=== PATIENT | female | born 1990 | race Caucasian/White ===

== ENCOUNTER 2017-01-01 23:41 | Emergency (ER) | payer OTHER ==
[~2017-01-01] VITALS: Ht 165.1 cm; Wt 105.5 kg
[2017-01-01 23:48] VITALS: Ht 165.1 cm; Wt 105.5 kg
--- NOTE | 2017-01-02 00:10 | ERA ---
ER Documentation Chief Complaint Date/Time DATE: 01/02/17 TIME: 00:09 Chief Complaint Suicidal Thoughts and felling angry and depress HPI The patient is a 26-year-old female, presenting to the ER because of depressed, angry, suicidal ideation. She was seen at [facility], evaluated by psychiatrist who discharged her. She had suicidal thoughts of shooting herself while cutting her wrist intermittently for 1 week. She denies auditory , visual hallucination, homicidal ideation. She denies fever, chills, neck pain , dyspnea, abdominal pain, vomiting, dysuria, diarrhea, constipation. She complains of chest discomfort and bilateral leg pain while she was in the ER. She smokes, drinks, denies illicit drug. He has similar been hospitalized psychiatric hospital Past medical history: Depression, anxiety Past surgical history: Thyroid tumor resection, tonsillectomy ROS All systems reviewed and are negative except as per history of present illness. Allergies Allergies: Coded Allergies: No Known Allergy (Unverified , 01/01/17) Physical Exam Vitals Vital Signs Date Time Temp Pulse Resp B/P Pulse Ox O2 Delivery O2 Flow Rate FiO2 01/02/17 01:38 97.8 77 20 132/70 99 Room Air 01/01/17 23:48 98.6 113 20 112/70 96 Physical Exam Const: No acute distress. Head: Atraumatic. Eyes: Normal Conjunctiva. ENT: Normal External Ears, Nose and Mouth. Neck: Full range of motion. No meningismus. Resp: Clear to auscultation bilaterally. Cardio: Regular rate and rhythm, no murmurs. Abd: Soft, non distended, normal bowel sounds, non tender. Skin: No petechiae or rashes. Back: No midline or flank tenderness. Ext: No cyanosis, or edema. Neur: Awake and alert. No focal deficit Psych: Depressed and suicidal. Result Diagram: 01/02/17 0100 01/02/17 0100 Results 24 hrs Laboratory Tests Test 01/02/17 01:00 01/02/17 01:14 01/02/17 01:20 White Blood Count 12.410^3/ul Red Blood Count 4.5810^6/ul Hemoglobin 12.7g/dl Hematocrit 39.5% Mean Corpuscular Volume 86.2fl Mean Corpuscular Hemoglobin 27.7pg Mean Corpuscular Hemoglobin Concent 32.2g/dl Red Cell Distribution Width 13.3% Platelet Count 80754^3/UL Mean Platelet Volume 10.9fl Neutrophils % 59.0% Lymphocytes % 32.2% Monocytes % 6.5% Eosinophils % 1.4% Basophils % 0.5% Nucleated Red Blood Cells % 0.0/100WBC Neutrophils # 7.310^3/ul Lymphocytes # 4.010^3/ul Monocytes # 0.810^3/ul Eosinophils # 0.210^3/ul Basophils # 0.110^3/ul Nucleated Red Blood Cells # 0.010^3/ul Sodium Level 141mmol/L Potassium Level 4.1mmol/L Chloride Level 103mmol/L Carbon Dioxide Level 23mmol/L Anion Gap 19 Blood Urea Nitrogen 12mg/dl Creatinine 0.74mg/dl Glucose Level 88mg/dl Calcium Level 9.3mg/dl Total Bilirubin 0.1mg/dl Direct Bilirubin 0.00mg/dl Indirect Bilirubin 0.1mg/dl Aspartate Amino Transf (AST/SGOT) 23IU/L Alanine Aminotransferase (ALT/SGPT) 20IU/L Alkaline Phosphatase 58IU/L Total Protein 8.1g/dl Albumin 4.3g/dl Globulin 3.80g/dl Albumin/Globulin Ratio 1.13 Salicylates Level Pending Acetaminophen Level Pending Ethyl Alcohol Level Pending Bedside Urine pH (LAB) 5.5 Bedside Urine Protein (LAB) Negative Bedside Urine Glucose (UA) Negative Bedside Urine Ketones (LAB) Negative Bedside Urine Blood Trace-intact Bedside Urine Nitrite (LAB) Negative Bedside Urine Leukocyte Esterase (L Negative Urine Opiates Screen Pending Urine Barbiturates Negative Urine Amphetamines Screen Negative Urine Benzodiazepines Screen Negative Urine Cocaine Screen Negative Urine Cannabinoids Negative Procedures/MDM EKG: Read by emergency physician Rate/Rhythm: Normal Sinus Rhythm 97 beats/min QRS, ST, T-waves: No ST elevation, no T inversion, sinus arrhythmia Impression: Abnormal EKG [place] [address] Radiology Main Line: [phone] DIAGNOSTIC IMAGING REPORT Patient: REGINA MERRITT : 1990 Age: 26 Sex: F MR #: [id number] DOS: 01/02/17 0025 Ordering MD: ZAK ORTEGA MD Location: E/R Room/Bed: PROCEDURE: Ultrasound examination of bilateral lower extremities veins with Doppler. CLINICAL INDICATION: Leg pain and swelling. TECHNIQUE: Multiple sonographic images of bilateral lower extremity venous systems were performed with barrera scale and color Doppler. COMPARISON: None. FINDINGS: Bilateral common femoral, superficial femoral and popliteal veins demonstrate normal color flow, waveforms, compression and response to augmentation. There is no evidence of deep venous thrombosis. IMPRESSION: No evidence of deep venous thrombosis within bilateral lower extremities. .Jarret Key MD, Date Time Electronically viewed and signed by .Jarret Key MD, on 01/02/2017 01:39 .T/ CC: ZAK ORTEGA MD [place] [address] Radiology Main Line: [phone] DIAGNOSTIC IMAGING REPORT Patient: REGINA MERRITT : 1990 Age: 26 Sex: F MR #: [id number] DOS: 01/02/17 0000 Ordering MD: ZAK ORTEGA MD Location: E/R Room/Bed: PROCEDURE: Portable chest x-ray. CLINICAL INDICATION: Cough. TECHNIQUE: Portable AP view of the chest. COMPARISON: None. FINDINGS: No pulmonary edema or conolidation is identified. The cardiac silhouette is magnified. No pleural effusion is seen. There is no pneumothorax. IMPRESSION: 1. No evidence of acute cardiopulmonary disease. RPTAT: HTAR .Talib Haley MD, Date Time Electronically viewed and signed by .Talib Haley MD, on 01/02/2017 01:49 .R/ CC: ZAK ORTEGA MD MEDICAL MAKING DECISION: The patient is a 26-year-old female, presenting with acute suicidal ideation. The differential diagnoses considered include but are not limited to acute anxiety attack, acute panic attack, decompensated psychiatric illness Departure Diagnosis: Primary Impression: Suicidal ideation Condition: Stable Comments She is awaiting for telepsychiatrist evaluation ZAK ORTEGA MD Jan 02, 2017 00:10
[2017-01-02 01:16] LABS: URINE BLOOD (Dip) POC Trace-intact (NEGATIVE)
[2017-01-02 01:24] LABS: ADD SCAN DIFF NO
[2017-01-02 01:30] LABS: BASOPHIL # 0.1 10^3/ul (0.0-0.1); BASOPHILS % 0.5 % (0.0-2.0); EOSINOPHILS # 0.2 10^3/ul (0.0-0.5); EOSINOPHILS % 1.4 % (0.0-7.0); HEMATOCRIT 39.5 % (37.0-47.0); HEMOGLOBIN 12.7 g/dl (12.0-16.0); LYMPHOCYTES % 32.2 % (15.0-51.0); MEAN CORPUSCULAR HEMOGLOBIN 27.7 pg (29.0-33.0); MEAN CORPUSCULAR HGB CONC 32.2 g/dl (32.0-37.0); MEAN CORPUSCULAR VOLUME 86.2 fl (82.0-101.0); MEAN PLATELET VOLUME 10.9 fl (7.4-10.4); MONOCYTE # 0.8 10^3/ul (0.3-0.9); MONOCYTES % 6.5 % (0.0-11.0); NEUTROPHIL # 7.3 10^3/ul (1.6-7.5); PLATELET COUNT 332 10^3/UL (140-415); RED BLOOD COUNT 4.58 10^6/ul (4.20-5.40); RED CELL DISTRIBUTION WIDTH 13.3 % (11.5-14.5); WHITE BLOOD COUNT 12.4 10^3/ul (4.8-10.8)
--- NOTE | 2017-01-02 01:39 | RADRPT ---
PROCEDURE: Ultrasound examination of bilateral lower extremities veins with Doppler. CLINICAL INDICATION: Leg pain and swelling. TECHNIQUE: Multiple sonographic images of bilateral lower extremity venous systems were performed with barrera scale and color Doppler. COMPARISON: None. FINDINGS: Bilateral common femoral, superficial femoral and popliteal veins demonstrate normal color flow, wav eforms, compression and response to augmentation. There is no evidence of deep venous thrombosis. IMPRESSION: No evidence of deep venous thrombosis within bilateral lower extremities. .Jarret Key MD, MD Date Time Electronically viewed and signed by .Jarret Key MD, MD on 01/02/2017 01:39 .T/
[2017-01-02 01:47] LABS: ALBUMIN 4.3 g/dl (3.3-4.9); CHLORIDE 103 mmol/L (97-110)
[2017-01-02 01:48] LABS: POTASSIUM 4.1 mmol/L (3.5-5.1); SODIUM 141 mmol/L (135-144)
--- NOTE | 2017-01-02 01:49 | RADRPT ---
PROCEDURE: Portable chest x-ray. CLINICAL INDICATION: Cough. TECHNIQUE: Portable AP view of the chest. COMPARISON: None. FINDINGS: No pulmonary edema or conolidation is identified. The cardiac silhouette is magnified. No pleural effusion is seen. There is no pneumothorax. IMPRESSION: 1. No evidence of acute cardiopulmonary disease. RPTAT: HTAR .Talib Haley MD, MD Date Time Electronically viewed and signed by .Talib Haley MD, on 01/02/2017 01:49 .R/
[2017-01-02 01:50] LABS: ALBUMIN/GLOBULIN RATIO 1.13; ALKALINE PHOSPHATASE 58 IU/L (42-121); ANION GAP 19 (8-16); ASPARTATE AMINO TRANSFERASE 23 IU/L (15-46); BILIRUBIN,INDIRECT 0.1 mg/dl (0-1.1); BILIRUBIN,TOTAL 0.1 mg/dl (0.2-1.3); BLOOD UREA NITROGEN 12 mg/dl (7-20); CARBON DIOXIDE 23 mmol/L (21-31); CREATININE 0.74 mg/dl (0.44-1.00); TOTAL PROTEIN 8.1 g/dl (6.1-8.1)
[2017-01-02 01:51] LABS: ALANINE AMINOTRANSFERASE 20 IU/L (13-69); CALCIUM 9.3 mg/dl (8.4-10.2); GLUCOSE 88 mg/dl (70-220)
[2017-01-02 02:00] LABS: BARBITURATES Negative (NEGATIVE); BENZODIAZEPINES Negative (NEGATIVE); CANNABINOIDS Negative (NEGATIVE); COCAINE Negative (NEGATIVE)
[2017-01-02 02:05] LABS: OPIATES Negative (NEGATIVE)
[2017-01-02 02:07] LABS: ACETAMINOPHEN < 10.0 ug/ml (10.0-30.0); ETHANOL < 10.0 mg/dl; SALICYLATE < 1.0 mg/dl (5.0-30.0)
[2017-01-02] MEDS ORDERED: BENZTROPINE 2 MG INJ IM ONE ×2 (03:00→04:30)
[2017-01-02] MEDS ORDERED: LORA1TAB PO (03:58)
[2017-01-02] MEDS ORDERED: BEN50 PO (03:59)
--- NOTE | 2017-01-02 04:02 | PSY ---
Date/Time of Note Date/Time of Note DATE: 01/02/17 TIME: 03:54 Psychiatric Subjective Eval Consent Pt consented to telemedicine: Yes Subjective Evaluation Patient location: emergency Chief Complaint: chest pain and leg pain Reason for consult: anxiety and pain History of present illness patient is a 26 yo female with PPH Of mood do nos and anxiety do who came to the ER due to few hours chest pain to the right side while breathing that gets better upon lying and leg pain with stiffness, numbness and restlessness , she states that she was started on latuda and ativan one week ago, denies any suicidal or homicidal ideation , no current manic or psychotic symptoms, but she has been feeling depressed and anxious for the past few weeks. denies any drug or alcohol use. she received 1 mg of cogentin IM which made her leg pain better but not the chest pain. Hospitalization: no Family History denies Medical history Problems Medical Problems: (1) Suicidal ideation Status: Acute Allergies: Coded Allergies: No Known Allergy (Unverified , 01/01/17) Substance Abuse Substance use: No known substance abuse Social History Marital status: single Level of education: unknown DPA/Conservatorship: No Psychiatric Objective Eval Review of Systems: Review of Systems: Not Applicable Physical Examination: Physical Examination: Applicable Sleep: Insomnia Appetite: Decreased Energy: Decreased Interest: Decreased Mental Status Examination: Appearance: Groomed Eye Contact: Good Psychomotor Activity: Normal Behavior: Cooperative Speech: Clear AFFECT: Anxious Mood: Anxious Though Process: Linear Thought Content: Normal Suicidal: No Homicidal: No On 72 hour hold: No Cognition: Alert Insight: Intact Judgement: Intact Attention Span: Intact Laboratory Results Laboratory Tests Test 01/02/17 01:00 01/02/17 01:14 01/02/17 01:20 White Blood Count 12.410^3/ul Red Blood Count 4.5810^6/ul Hemoglobin 12.7g/dl Hematocrit 39.5% Mean Corpuscular Volume 86.2fl Mean Corpuscular Hemoglobin 27.7pg Mean Corpuscular Hemoglobin Concent 32.2g/dl Red Cell Distribution Width 13.3% Platelet Count 05057^3/UL Mean Platelet Volume 10.9fl Neutrophils % 59.0% Lymphocytes % 32.2% Monocytes % 6.5% Eosinophils % 1.4% Basophils % 0.5% Nucleated Red Blood Cells % 0.0/100WBC Neutrophils # 7.310^3/ul Lymphocytes # 4.010^3/ul Monocytes # 0.810^3/ul Eosinophils # 0.210^3/ul Basophils # 0.110^3/ul Nucleated Red Blood Cells # 0.010^3/ul Sodium Level 141mmol/L Potassium Level 4.1mmol/L Chloride Level 103mmol/L Carbon Dioxide Level 23mmol/L Anion Gap 19 Blood Urea Nitrogen 12mg/dl Creatinine 0.74mg/dl Glucose Level 88mg/dl Calcium Level 9.3mg/dl Total Bilirubin 0.1mg/dl Direct Bilirubin 0.00mg/dl Indirect Bilirubin 0.1mg/dl Aspartate Amino Transf (AST/SGOT) 23IU/L Alanine Aminotransferase (ALT/SGPT) 20IU/L Alkaline Phosphatase 58IU/L Total Protein 8.1g/dl Albumin 4.3g/dl Globulin 3.80g/dl Albumin/Globulin Ratio 1.13 Salicylates Level < 1.0mg/dl Acetaminophen Level < 10.0ug/ml Ethyl Alcohol Level < 10.0mg/dl Bedside Urine pH (LAB) 5.5 Bedside Urine Protein (LAB) Negative Bedside Urine Glucose (UA) Negative Bedside Urine Ketones (LAB) Negative Bedside Urine Blood Trace-intact Bedside Urine Nitrite (LAB) Negative Bedside Urine Leukocyte Esterase (L Negative Urine Opiates Screen Negative Urine Barbiturates Negative Urine Amphetamines Screen Negative Urine Benzodiazepines Screen Negative Urine Cocaine Screen Negative Urine Cannabinoids Negative Assessment and Plan Assessment/Diagnosis Lockhart I: mood do nos anxiety do nos Lockhart II: deferred [place] III: as per record Lockhart IV: poor social support Lockhart V: gaf 70 Recommendation/Plan Medication Management ativan 1 mg po qd for one week for anxiety benadryl 50 mg po qd prn eps side effect from latuda and stop latuda please give her cogentin 1 mg IM before discharge for EPS Follow-up/Disposition In my opinion,for this patient, outpatient care is the least restrictive option. Based on available evidence, this condition CAN be safely treated at a lower level of care effective today. Patient is stable without clear and convincing evidence of imminent danger due to mental illness that requires acute inpatient psychiatric care as the least restrictive alternative. Please discharge patient with referral for follow up to a outpatient mental health clinic for psychotherapy and medication. FERNANDO STONE MD Jan 02, 2017 04:02
[2017-01-02 04:15] VITALS: BP 130/70; PULSE 72; RESP 20; TEMP 97.2
== END 2017-01-02 04:30 | disposition home or self-care (01) ==
LOC: E/R 23:41
DX: F32.9 Major depressive disorder, single episode, unspecified (principal); R45.851 Suicidal ideations; R05 Cough
CPT/HCPCS: 36415; 71010; 80053; 80306; 80307; 81003; 85025; 93005; 93923; 96372; J0515; Z7502